=== PATIENT | female | born 1945 | race African-American/Black ===

== ENCOUNTER 2019-03-17 15:47 | Emergency (ER) | payer MEDICARE, MEDICAID ==
[~2019-03-17] VITALS: Ht 165.1 cm; Wt 73.0 kg
[~2019-03-17 15:47] MED LIST: ASPI-1158 MT; ATOR-2 PO; CALC-906 PO; CHOL200074 MT; DONE5TAB33 PO; FAMO-135 MT; LISI40TA4 PO
[2019-03-17] MEDS ORDERED: HYDR12.529 MT (16:07)
[2019-03-17 17:23] VITALS: BP 124/70
== END 2019-03-17 23:00 | disposition left against medical advice (07) ==
LOC: ER 22:56
DX: Z53.21 Procedure and treatment not carried out due to patient leaving prior to being seen by health care provider (principal)

== ENCOUNTER 2021-01-28 11:47 | Emergency (ER) | payer MEDICARE, MEDICAID ==
[~2021-01-28] VITALS: Ht 165.1 cm; Wt 75.0 kg
[~2021-01-28 11:47] MED LIST changes: -ASPI-1158 MT; +ASPI-1406 MT; +HYDR12.529 MT; +LISI40TA13 PO; -LISI40TA4 PO
[2021-01-28 12:04] VITALS: BP 146/81
[2021-01-28] MEDS ORDERED: P20 MT (14:31)
== END 2021-01-28 14:54 | disposition home or self-care (01) ==
LOC: ER 11:47
DX: R21 Rash and other nonspecific skin eruption (principal); L29.9 Pruritus, unspecified
CPT/HCPCS: 99283

== ENCOUNTER 2022-03-01 12:37 | Emergency (ER) | payer MEDICARE, MEDICAID ==
[~2022-03-01] VITALS: Ht 167.6 cm; Wt 67.0 kg
[~2022-03-01 12:37] MED LIST changes: +P20 MT
[2022-03-01 12:49] VITALS: BP 117/71
[2022-03-01] MEDS ORDERED: ACETAMINOPHEN 325MG TABLET PO NR (13:15)
[2022-03-01] MEDS ORDERED: LIDOCAINE 5% PATCH TOP SCH (13:15)
[2022-03-01] MEDS ORDERED: ACETAMINOPHEN 325MG TABLET PO ONE (13:15)
[2022-03-01 15:25] LABS: BASOPHILS % 0.4 % (0.0-2.0); HEMATOCRIT. 36.2 % (36.0-48.0); HEMOGLOBIN. 12.2 g/dL (12.0-16.0); LYMPHOCYTES % 16.7 % (20.0-50.0); MEAN CORPUSCULAR VOLUME 104.3 fL (81.0-99.0); MEAN PLATELET VOLUME 7.3 fl (7.4-10.4); MONOCYTES % 7.6 % (2.0-8.0); NEUTROPHILS % 74.3 % (40.0-76.0); PLATELET 333 x1000/uL (130-400); RED BLOOD CELL COUNT 3.47 mill/uL (4.2-5.4); RED CELL DISTRIBUTION WIDTH 14.2 % (11.6-14.6)
[2022-03-01 15:34] LABS: CHLORIDE 104 mEq/L (98-107)
[2022-03-01 15:38] LABS: PROTHROMBIN TIME 10.6 sec (9.6-11.0)
[2022-03-01] MEDS ORDERED: IOHEXOL-300 100 ML BOTTLE ONE (17:06)
[2022-03-01] MEDS ORDERED: LIDO700A15 TP (19:32)
== END 2022-03-01 20:00 | disposition home or self-care (01) ==
LOC: ER 12:53
DX: S32.038A Other fracture of third lumbar vertebra, initial encounter for closed fracture (principal); S22.32XA Fracture of one rib, left side, initial encounter for closed fracture; W01.190A Fall on same level from slipping, tripping and stumbling with subsequent striking against furniture, initial encounter; Y93.89 Activity, other specified; Y92.013 Bedroom of single-family (private) house as the place of occurrence of the external cause; I10 Essential (primary) hypertension; E78.5 Hyperlipidemia, unspecified
CPT/HCPCS: 36415; 71101; 71260; 74177; 80053; 85025; 85610; 99285; Q9967; Z7610

== ENCOUNTER → 2025-02-03 | Outpatient (CLI) | payer MEDICARE, MEDICAID ==
[~2025-02-03] MED LIST changes: +LIDO-53 TP; -LISI40TA13 PO; +LISI40TA21 PO
== END | disposition home or self-care (01) ==
LOC: US 09:40
PROVIDERS: ATTEND Internal Medicine Gastroenterology
DX: K80.20 Calculus of gallbladder without cholecystitis without obstruction (principal); N28.1 Cyst of kidney, acquired; N28.89 Other specified disorders of kidney and ureter; R63.4 Abnormal weight loss
CPT/HCPCS: 76700